=== PATIENT | female | born 1965 | race Caucasian/White ===

== ENCOUNTER 2018-02-19 23:17 | Emergency (ER) | payer BC, OTHER ==
[2018-02-19] MEDS ORDERED: Ketorolac 10 MG Tab PO ONE (23:18)
[2018-02-20] MEDS ORDERED: Meclizine 12.5 MG Tab PO ONE (00:10)
[2018-02-20] MEDS ORDERED: Ketorolac 10 MG Tab PO ONE (00:10)
[2018-02-20] MEDS ORDERED: Ondansetron 4 MG Tab.DIS PO ONE (00:10)
--- NOTE | 2018-02-20 00:13 | EDM.PDOC ---
ED HPI GENERAL MEDICAL PROBLEM - General Chief Complaint: General Stated Complaint: VERY SICK, PAIN [id number] Time Seen by Provider: 02/20/18 00:11 Source of Information: Reports: Patient History Limitations: Reports: No Limitations - History of Present Illness INITIAL COMMENTS - FREE TEXT/NARRATIVE: was Dx with sinusitis last week Tx with augmentin got better then today started F/C shaky couldn't get warm with vertigo and whole body ached. 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 ED EXAM, GENERAL - Physical Exam Exam: See Below Exam Limited By: No Limitations General Appearance: Alert, WD/WN, Anxious, Mild Distress, Other (crying) Ears: Normal External Exam, Normal Canal, Hearing Grossly Normal, Normal TMs Throat/Mouth: Normal Inspection, Normal Oropharynx, Normal Voice, No Airway Compromise Head: Atraumatic Neck: Non-Tender, Full Range of Motion Respiratory/Chest: No Respiratory Distress Cardiovascular: Regular Rate, Rhythm GI/Abdominal: Soft, Non-Tender Neurological: Alert, Oriented, Normal Cognition, Normal Gait, No Motor/Sensory Deficits Psychiatric: Tearful Skin Exam: Warm, Dry, Normal Color Lymphatic: No Adenopathy Course - Vital Signs Last Recorded V/S: Last Vital Signs Temp 37.3 C 02/19/18 23:32 Pulse 110 H 02/19/18 23:32 Resp 23 H 02/19/18 23:32 BP 145/112 H 02/19/18 23:32 Pulse Ox 100 02/19/18 23:32 - Orders/Labs/Meds Meds: Medications Discontinued Medications Generic Name Dose Route Start Last Admin Trade Name Freq PRN Reason Stop Dose Admin Ketorolac Tromethamine 10 mg 02/20/18 00:10 02/20/18 00:20 Toradol PO 02/20/18 00:11 10 mg ONETIME ONE Administration Meclizine HCl 12.5 mg 02/20/18 00:10 02/20/18 00:21 Antivert PO 02/20/18 00:11 12.5 mg ONETIME ONE Administration Ondansetron HCl 4 mg 02/20/18 00:10 02/20/18 00:20 Zofran Odt PO 02/20/18 00:11 4 mg ONETIME ONE Administration - Re-Assessments/Exams Free Text/Narrative Re-Assessment/Exam: 02/20/18 00:56 results discussed with pt who is feeling much better presently. Departure - Departure Time of Disposition: 00:57 Disposition: Home, Self-Care 01 Condition: Good Clinical Impression: Flu syndrome - Discharge Information Forms: ED Department Discharge Additional Instructions: 1) sleep as much as possible 2) try motrin for fever or chills 3) drink lots of liquids 4) recheck as needed rx mahoganyo; toradol 10mg x 1
[2018-02-20] MEDS ORDERED: Ketorolac 10 MG Tab ONE (01:04)
== END 2018-02-20 01:05 | disposition home or self-care (01) ==
LOC: DL.ED 23:17
DX: J11.1 Influenza due to unidentified influenza virus with other respiratory manifestations (principal); Z87.891 Personal history of nicotine dependence
CPT/HCPCS: 87804; 99283; A9270

== ENCOUNTER 2021-04-16 08:01 | Emergency (ER) | payer OTHER ==
[2021-04-16] MEDS ORDERED: Clindamycin HCl 150 MG Cap PO ONE (08:21)
--- NOTE | 2021-04-16 08:33 | EDM.PDOC ---
ED HPI GENERAL MEDICAL PROBLEM - General Chief Complaint: ENT Problem Stated Complaint: [id number] LEFT EAR DRUM RUPTURED Time Seen by Provider: 04/16/21 08:10 Source of Information: Reports: Patient History Limitations: Reports: No Limitations - History of Present Illness INITIAL COMMENTS - FREE TEXT/NARRATIVE: This 56 yo female patient report to the ED with left ear pain. The patient reports she has a dental abscess to her left lower jaw. The patient was seen by her dentist and started on Amoxicillin. The patient has been taking her Amoxicillin 3 times per day since Wednesday, but her pain has continued and extended to her left ear. 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) Left Ear Pain Score (Numeric/FACES): 7 - Related Data Allergies Allergy/AdvReac Type Severity Reaction Status Date / Time No Known Allergies Allergy Verified 04/16/21 08:18 Home Meds: Home Meds PARoxetine HCL [Paroxetine HCl] 40 mg PO DAILY 02/20/18 [History] Amoxicillin 500 mg PO TID 04/16/21 [History] oxyCODONE HCl/Acetaminophen [Oxycodone-Acetaminophen 5-325] 1 each PO ASDIRECTED 04/16/21 [History] 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 ED EXAM, ENT - Physical Exam Exam: See Below Exam Limited By: No Limitations General Appearance: Alert, WD/WN, Moderate Distress Eye Exam: Bilateral Eye: EOMI, Normal Inspection, PERRL Ears: Normal External Exam, Canal Swelling (left) Nose: Normal Inspection, Normal Mucousa, No Blood Mouth/Throat: Dental Pain, Dental Tenderness, Gum Swelling Head: Facial Tenderness (left side of face up to the left ear) Neck: Normal Inspection, Supple, Non-Tender, Full Range of Motion Respiratory/Chest: No Respiratory Distress, Lungs Clear, Normal Breath Sounds, No Accessory Muscle Use, Chest Non-Tender Cardiovascular: Normal Peripheral Pulses, Regular Rate, Rhythm, No Edema, No Gallop, No JVD, No Murmur, No Rub GI/Abdominal: Normal Bowel Sounds, Soft, Non-Tender, No Organomegaly, No Distention, No Abnormal Bruit, No Mass (Female) Exam: Deferred Rectal (Female) Exam: Deferred Back: Normal Inspection, Full Range of Motion Extremities: Normal Inspection, Normal Range of Motion, Non-Tender, No Pedal Edema, Normal Capillary Refill Neurological: Alert, Oriented, CN II-XII Intact, Normal Cognition, Normal Gait, Normal Reflexes, No Motor/Sensory Deficits Psychiatric: Normal Affect, Normal Mood Skin: Warm, Dry, Intact, Normal Color, No Rash Lymphatic: No Adenopathy Course - Vital Signs Last Recorded V/S: Last Vital Signs Temp 97.2 F 04/16/21 08:14 Pulse 82 04/16/21 08:14 Resp 14 04/16/21 08:14 BP 136/89 04/16/21 08:14 Pulse Ox 95 04/16/21 08:14 - Orders/Labs/Meds Meds: Medications Discontinued Medications Generic Name Dose Route Start Last Admin Trade Name Fredoq PRN Reason Stop Dose Admin Clindamycin HCl 300 mg 04/16/21 08:21 04/16/21 08:27 Clindamycin Hcl 150 Mg Cap PO 04/16/21 08:22 300 mg ONETIME ONE Administration Departure - Departure Time of Disposition: 08:34 Disposition: Home, Self-Care 01 Condition: Fair Clinical Impression: Abscess, dental Otitis externa Qualifiers: Otitis externa type: unspecified type Chronicity: unspecified Laterality: left Qualified Code(s): H60.92 - Unspecified otitis externa, left ear - Discharge Information *PRESCRIPTION DRUG MONITORING PROGRAM REVIEWED*: Not Applicable *COPY OF PRESCRIPTION DRUG MONITORING REPORT IN PATIENT GERMÁN: Not Applicable Instructions: Otitis Externa, [id number], Dental Abscess, [id number] Forms: ED Department Discharge Care Plan Goals: The patient was advised of the examination results during the visit. The patient was advised to discontinue taking the Amoxicillin. The patient was given an oral dose of Clindamycin (300 mg) while in the ED. The patient was discharged with a script for Clindamycin (300 mg) #40 to take 1 by mouth 4 times per day for 10 days and Percocet (5/325) #12 to take 1 by mouth every 4 hours as needed for pain. The patient was encouraged to call the dental office in [place] to inform them of the progress of her abscess. If the patient has any additional symptoms or concerns, the patient should either return to the emergency department or visit her primary care facility. Sepsis Event Note (ED) - Evaluation Sepsis Screening Result: No Definite Risk - Focused Exam Vital Signs: Vital Signs Temp Pulse Resp BP Pulse Ox 04/16/21 08:14 97.2 F 82 14 136/89 95
== END 2021-04-16 08:56 | disposition home or self-care (01) ==
LOC: DL.ED 08:01
DX: K04.7 Periapical abscess without sinus (principal); H60.92 Unspecified otitis externa, left ear
CPT/HCPCS: 99282; A9270-GY

== ENCOUNTER 2024-02-27 15:56 | Emergency (ER) | payer SELFPAY | END 2024-02-27 16:36 | LOC: DL.ED 15:56 | DX: Z53.21 Procedure and treatment not carried out due to patient leaving prior to being seen by health care provider (principal) ==

== ENCOUNTER 2025-04-10 06:56 | Day surgery (SDC) | payer OTHER ==
[2025-04-10] MEDS ORDERED: Lactated Ringers 1,000 ML IV ONE (06:57)
[2025-04-10] MEDS ORDERED: Propofol 200 MG/20 ML SDV IV ONE (06:57)
[2025-04-10] MEDS: Lactated Ringers 1,000 ML IV SCH (07:23)
[2025-04-10] MEDS ORDERED: Propofol 200 MG/20 ML SDV ONE (08:23)
== END 2025-04-10 09:03 | disposition home or self-care (01) ==
LOC: DL.ENDO 06:56
PROVIDERS: ATTEND Internal Medicine Gastroenterology
DX: R13.10 Dysphagia, unspecified (principal); K25.9 Gastric ulcer, unspecified as acute or chronic, without hemorrhage or perforation; E66.01 Morbid (severe) obesity due to excess calories; Z68.38 Body mass index [BMI] 38.0-38.9, adult
CPT/HCPCS: J2003; J2704; J7120